=== PATIENT | male | born 1980 | race Caucasian/White ===

== ENCOUNTER 2024-01-02 14:11 | Inpatient (IN) | payer OTHER ==
[2024-01-02 14:57] VITALS: BMI 40.6
[2024-01-02] MEDS ORDERED: NALOXONE HCL 0.4 MG/ML VIAL IM PRN (15:10)
[2024-01-02] MEDS ORDERED: ACETAMINOPHEN 325 MG TABLET (FP) PO PRN (15:10)
[2024-01-02] MEDS ORDERED: LOPERAMIDE HCL 2 MG CAPSULE PO PRN (15:10)
[2024-01-02] MEDS ORDERED: MAG HYDROX/AL HYDROX/SIMETH 30 ML UNIT-DOSE CUP PO PRN (15:10)
[2024-01-02] MEDS ORDERED: IBUPROFEN 400 MG TABLET (FP) PO PRN (15:10)
[2024-01-02] MEDS ORDERED: NALOXONE (NARCAN) HCL 4 MG/0.1 ML SPRAY NS PRN (15:10)
[2024-01-02] MEDS ORDERED: MAGNESIUM HYDROX 2400MG/30ML ORAL SUSPENSION 30 ML CUP PO PRN (15:10)
[2024-01-02] MEDS ORDERED: POLYETHYLENE GLYCOL (HEALTHYLAX) 3350 17 GM PACKET PO PRN (15:10)
[2024-01-02] MEDS ORDERED: BISMUTH SUBSALICYLATE 524 MG/30 ML PO PRN (15:10)
[2024-01-02] MEDS ORDERED: IBUPROFEN 600 MG TABLET (FP) PO PRN (15:10)
[2024-01-02] MEDS ORDERED: ONDANSETRON *ODT* 4 MG TABLET SL PRN (15:10)
[2024-01-02] MEDS ORDERED: BENZONATATE 200 MG CAPSULE PO PRN (15:10)
[2024-01-02] MEDS ORDERED: guaiFENesin 600 MG TABLET.ER (FP) PO PRN (15:10)
[2024-01-02] MEDS ORDERED: BENZOCAINE/MENTHOL (CHLORASEPTIC ) LOZENGE MM PRN (15:10)
[2024-01-02] MEDS: methaDONE HCL 10 MG TABLET PO ONE (16:10)
[2024-01-02] MEDS: PRENATAL VITAMINS W/ FOLIC ACID TABLET (FP) PO SCH (16:10)
[2024-01-02] MEDS ORDERED: methaDONE HCL 10 MG TABLET PO PRN (17:10)
[2024-01-02] MEDS ORDERED: methaDONE HCL 10 MG TABLET (FOR DETOX USE ONLY) ONE (17:25)
[2024-01-02] MEDS: cloNIDine HCL 0.1 MG TABLET PO SCH (17:35)
[2024-01-02] MEDS: THIAMINE 100 MG TABLET PO SCH (21:37)
[2024-01-02] MEDS: MELATONIN 5 MG TABLETS PO SCH (21:38)
[2024-01-03] MEDS: METHOCARBAMOL 500 MG TABLET PO PRN (00:10)
[2024-01-03] MEDS: DICYCLOMINE HCL 10 MG CAPSULE PO PRN (00:10)
[2024-01-03] MEDS: hydrOXYzine PAMOATE 25 MG CAPSULE (FP) PO PRN (00:10)
[2024-01-03 09:18] VITALS: RESP 20
[2024-01-03] MEDS: methaDONE 40 MG, methaDONE 10 MG PO ONE (10:12)
[2024-01-03 11:57] LABS: HEMATOCRIT 40.2 % (35.4-49); HEMOGLOBIN 13.2 GM/dL (11.7-16.9); MCH 25.4 pg (25.7-33.7); MCHC 32.8 g/dl (32.0-35.9); MEAN CELL VOLUME 77.4 fl (80-96); MEAN PLT VOLUME 7.9 fl (7.5-11.1); PLATELET COUNT 322 10^3/uL (134-434); RBC 5.19 M/mm3 (4.00-5.60); RDW 15.7 % (11.9-15.9); WHITE BLOOD COUNT 7.8 K/mm3 (4.0-10.0)
[2024-01-03 12:02] LABS: POTASSIUM 3.9 mmol/L (3.5-5.1)
[2024-01-03 12:10] LABS: ALBUMIN 3.9 g/dl (3.4-5.0); CALCIUM 9.2 mg/dL (8.5-10.1)
[2024-01-03 12:13] LABS: BILIRUBIN,TOTAL 0.7 mg/dL (0.2-1); TOT PROT 7.4 g/dl (6.4-8.2)
[2024-01-03 13:16] VITALS: BP 147/98; PULSE 119; TEMP 97.8
[2024-01-03] MEDS ORDERED: SUVOREXANT 10 MG TABLET PO PRN (22:00)
[2024-01-04] MEDS ORDERED: cloNIDine HCL 0.1 MG TABLET PO PRN
[2024-01-04] MEDS ORDERED: methaDONE 40 MG, methaDONE 20 MG PO ONE (10:00)
[2024-01-05] MEDS ORDERED: methaDONE 40 MG, methaDONE 30 MG PO ONE (10:00)
[2024-01-06] MEDS ORDERED: methaDONE HCL 40 MG DISPERSABLE TABLET PO ONE (10:00)
[2024-01-07] MEDS ORDERED: methaDONE 80 MG, methaDONE 10 MG PO ONE (10:00)
== END 2024-01-04 00:07 | DRG 773 ==
LOC: YASAS 14:11 → Y3N 16:44
PROVIDERS: ADMIT Allergy & Immunology; ATTEND Psychiatry & Neurology Pain Medicine
PROC: HZ2ZZZZ Detoxification Services for Substance Abuse Treatment (ICD-10-PCS; principal; 2024-01-02)
DX: F11.23 Opioid dependence with withdrawal (principal); F13.20 Sedative, hypnotic or anxiolytic dependence, uncomplicated; F19.282 Other psychoactive substance dependence with psychoactive substance-induced sleep disorder; F19.24 Other psychoactive substance dependence with psychoactive substance-induced mood disorder; I10 Essential (primary) hypertension
CPT/HCPCS: 36415; 80053; 80305; 85027; 86780; 93005; 93010